=== PATIENT | female | born 1970 | race Caucasian/White ===

== ENCOUNTER → 2016-07-19 | Outpatient (CLI) | payer OTHER ==
--- NOTE | 2016-07-19 17:17 | XR ---
EXAMINATION TYPE: XR shoulder complete RT DATE OF EXAM: 07/19/2016 5:02 PM COMPARISON: NONE HISTORY: Pain after injury TECHNIQUE: 4 views FINDINGS: Negative for fracture or malalignment. No incidental findings. IMPRESSION: No acute process.
--- NOTE | 2016-07-19 17:19 | XR ---
EXAMINATION TYPE: XR scapula RT DATE OF EXAM: 07/19/2016 5:02 PM COMPARISON: NONE HISTORY: Pain after injury TECHNIQUE: 2 views FINDINGS: There is no fracture or malalignment. No incidental findings. IMPRESSION: No acute process.
== END | disposition home or self-care (01) ==
LOC: RADXRMAIN 16:37
PROVIDERS: ATTEND Emergency Medicine
DX: S40.011A Contusion of right shoulder, initial encounter (principal)

== ENCOUNTER → 2016-08-04 | Outpatient (CLI) | payer OTHER ==
--- NOTE | 2016-08-04 16:27 | MR ---
EXAMINATION TYPE: MR shoulder RT wo con DATE OF EXAM: 08/04/2016 7:03 AM COMPARISON: Right shoulder and scapular x-ray July 19, 2016 HISTORY: Rt shoulder contusion, pain, and disturbances of skin sensation all per order. Right shoulde r pain with tingling into fingers and hands since injury just over 2 weeks ago. History of prior shou lder surgery twice in 2015 per patient. TECHNIQUE: Multiplanar, multisequence imaging of the right shoulder is performed without contrast. FINDINGS: Rotator Cuff: There is increased signal in distal supraspinatus tendon. There is small focal defect a t articular surface measuring 5 x millimeters AP 5 mm transversely on parasagittal image 22 on paraco ellis image 14. No full-thickness retracted tear is seen. Infraspinatus tendon is intact. Subscapular is tendon is intact. Rotator cuff muscle bulk is preserved. Acromioclavicular Joint: There is capsular hypertrophy and joint space loss at acromioclavicular join t. Distal acromion morphology is intact. Underlying fat plane is maintained. Glenohumeral Joint: There is small glenohumeral joint effusion. No significant spurring is seen. Labrum: The labrum appears grossly intact given limitation of non-arthrogram study. Linear increased signal superior labrum for reference paracoronal image 12 favors sublabral recess. Biceps Tendon: The long head of biceps is in normal location within bicipital groove. Bone marrow signal: Some heterogeneity of bone marrow signal intensity is consistent with red marrow reconversion. Other: No additional significant abnormality is appreciated. IMPRESSION: Partial tear and tendinosis of the distal supraspinatus tendon. No full-thickness rotator cuff or labral tear clearly seen.
== END | disposition home or self-care (01) ==
LOC: RADMRIMAIN 06:28
PROVIDERS: ATTEND Emergency Medicine
DX: S46.811A Strain of other muscles, fascia and tendons at shoulder and upper arm level, right arm, initial encounter (principal); M75.81 Other shoulder lesions, right shoulder

== ENCOUNTER 2017-02-16 11:17 | Emergency (ER) | payer OTHER ==
[2017-02-16 11:25] VITALS: BP 133/68; PULSE 102; RESP 20; TEMP 100
--- NOTE | 2017-02-16 11:39 | XR ---
EXAMINATION TYPE: XR ankle complete LT DATE OF EXAM: 02/16/2017 COMPARISON: NONE HISTORY: Pain FINDINGS: Three views of the ankle demonstrate the ankle mortise to be intact and symmetric. The joint spaces are preserved. There are bony densities along the lateral malleolus with soft tissue swelling. Calcan eal spur noted. IMPRESSION: 1. Findings suspicious for avulsion fracture lateral malleolus. Adjacent soft tissue edema noted.
--- NOTE | 2017-02-16 12:00 | ED ---
General Adult HPI - General Chief complaint: Extremity Injury, Lower Stated complaint: LEFT ANKLE INJURY Time Seen by Provider: 02/16/17 11:25 Source: patient, RN notes reviewed Mode of arrival: ambulatory Limitations: no limitations - History of Present Illness Initial comments: 46-year-old female presents emergency for an chief complaint of left ankle pain. She was at volleyball in one of her fingers accurately manage her left ankle. She doesn't have pain to the left ankle. She is able to walk she has been using crutches. She does admit to history of injury to that ankle in the past but states it is not been for a long time now. Patient denies any other injuries this time. Patient denies any other trauma. Patient denies any recent fever, chills, shortness of breath, chest pain, back pain, abdominal pain, nausea vomiting, numbness or tingling, dysuria or hematuria, constipation or diarrhea, headaches or visual changes, or any other current symptoms. - Related Data Home Medications Medication Instructions Recorded Confirmed Cetirizine HCl [Zyrtec] 10 mg PO DAILY 02/16/17 02/16/17 Allergies Allergy/AdvReac Type Severity Reaction Status Date / Time amoxicillin [Amoxicillin] Allergy Rash/Hives Verified 02/16/17 11:39 chicken derived Allergy Unknown Verified 02/16/17 11:39 cinnamon Allergy Swelling Verified 02/16/17 11:39 cocoa Allergy Swelling Verified 02/16/17 11:39 doxycycline hyclate Allergy Rash/Hives Verified 02/16/17 11:39 [From Vibra-Tabs] Iodinated Contrast- Oral and Allergy Dyspnea Verified 02/16/17 11:39 IV Dye [Iodinated Contrast Media - IV Dye] Penicillins Allergy Rash/Hives Verified 02/16/17 11:39 Sulfa (Sulfonamide Allergy Rash/Hives Verified 02/16/17 11:39 Antibiotics) gluten AdvReac Unknown Unknown Verified 02/16/17 11:39 corn AdvReac Unknown Verified 02/16/17 11:39 watermelon AdvReac Unknown Verified 02/16/17 11:39 wheat AdvReac Unknown Verified 02/16/17 11:39 egg white AdvReac Unknown Uncoded 02/16/17 11:25 salmon AdvReac Unknown Uncoded 02/16/17 11:25 sesame AdvReac Unknown Uncoded 02/16/17 11:25 tea AdvReac Unknown Uncoded 02/16/17 11:25 tuna AdvReac Diarrhea Uncoded 02/16/17 11:25 turkey AdvReac Unknown Uncoded 02/16/17 11:25 yogurt AdvReac Unknown Uncoded 02/16/17 11:25 Review of Systems ROS Statement: Those systems with pertinent positive or pertinent negative responses have been documented in the HPI. ROS Other: All systems not noted in ROS Statement are negative. Past Medical History Past Medical History: GERD/Reflux, Hyperlipidemia, Thyroid Disorder Additional Past Medical History / Comment(s): Other HX: umbilical hernia, abdominal pain in the pastand dysphagia in the past which were determined to be food allergies. Pt had testing and has many food allergies. Her is bringing in a list of those allergies. Thyroid cyst. History of Any Multi-Drug Resistant Organisms: None Reported Past Surgical History: Orthopedic Surgery Additional Past Surgical History / Comment(s): 10/28/14 Srthroscopic R shoulder surgery. left ankle ligament repair with [address], throat scope. Past Anesthesia/Blood Transfusion Reactions: No Reported Reaction Additional Past Anesthesia/Blood Transfusion Reaction / Comment(s): Pt has never recieved blood. Past Psychological History: No Psychological Hx Reported Smoking Status: Never smoker Past Alcohol Use History: Rare Past Drug Use History: None Reported - Past Family History Father Family Medical History: Renal Disease Additional Family Medical History / Comment(s): Father is healthy except for renal stones. Mother Family Medical History: No Reported History Additional Family Medical History / Comment(s): Mother is healthy. Sister(s) Family Medical History: Diabetes Mellitus General Exam - General Exam Comments Initial Comments: General: The patient is awake and alert, in no distress, and does not appear acutely ill. Neck: The neck is supple, there is no tenderness. Cardiovascular: There is a regular rate and rhythm. No murmur, rub or gallop is appreciated. Respiratory: Lungs are clear to auscultation, respirations are non-labored, breath sounds are equal. No wheezes, stridor, rales, or rhonchi. Musculoskeletal: Sensation intact with 2+ pulses throughout the left flexion. Frontal motion of left knee and left ankle. Patient does have point tenderness to the lateral malleolus with some associated swelling. No proximal tib-fib tenderness. Patient is no tenderness with patient throughout the forefoot. Full range of motion 5 out of 5 muscle strength testing throughout. Neurological: CN II-XII intact, There are no obvious motor or sensory deficits. Coordination appears grossly intact. Speech is normal. Skin: Skin is warm and dry and no rashes or lesions are noted. Psychiatric: Normal mood and affect. Limitations: no limitations Course Vital Signs 02/16/17 11:21 Temperature 100.0 F H Pulse Rate 102 H Respiratory 20 Rate Blood Pressure 133/68 O2 Sat by Pulse 96 Oximetry Procedures - Orthopedic Splinting/Casting Injury #1 Side: left Lower Extremity Injury Location: ankle Lower Extremity Immobilizer: stirrup splint (short leg) Medical Decision Making - Medical Decision Making 46 shows male presents with what appears to positive pressure left ankle. She was placed in a splint at this time. We did discuss all dorsal. We did discuss return parameters all patient's questions. She stated that she understood and she is given plan. All questions have been answered. She will be discharged. - Radiology Data Radiology results: report reviewed, image reviewed Disposition Clinical Impression: Avulsion fracture of left ankle Disposition: HOME SELF-CARE Condition: Stable Instructions: Ankle Fracture (ED) Additional Instructions: Please use medication as discussed. Please follow up with family doctor if symptoms have not improved over the next two days. Please return to the emergency room if your symptoms increase or worsen or for any other concerns. Referrals: Jessica Almaraz MD [Primary Care Provider] - 1-2 days Hung Ball MD [Medical Doctor] - 1-2 days Time of Disposition: 12:00
== END 2017-02-16 12:23 | disposition home or self-care (01) ==
LOC: EC 11:17
DX: S82.892A Other fracture of left lower leg, initial encounter for closed fracture (principal); Z79.899 Other long term (current) drug therapy; Z88.0 Allergy status to penicillin; Z91.018 Allergy to other foods; Z88.1 Allergy status to other antibiotic agents; Z91.041 Radiographic dye allergy status; Z88.2 Allergy status to sulfonamides; Z91.012 Allergy to eggs; Y92.219 Unspecified school as the place of occurrence of the external cause; Y93.68 Activity, volleyball (beach) (court)
CPT/HCPCS: 29515; 99283

== ENCOUNTER → 2022-06-01 | Outpatient (CLI) | payer BC ==
--- NOTE | 2022-06-01 09:32 | US ---
EXAMINATION TYPE: US abdomen complete DATE OF EXAM: 06/01/2022 COMPARISON: NONE CLINICAL HISTORY: 51-year-old female R14.0 ABDOMINAL DISTENSION. TECHNIQUE: Multiple sonographic images of the abdomen are obtained. FINDINGS: EXAM MEASUREMENTS: Liver Length: 14.5 cm Gallbladder Wall: 0.17 cm CBD: 0.32 cm Spleen: 8.2 cm Right Kidney: 10.6 x 4.2 x 4.8 cm Left Kidney: 11.2 x 5.4 x 4.3 cm Pancreas: Tail obscured by overlying bowel gas Liver: Increased attenuation Gallbladder: wnl Evidence for sonographic Gamez's sign: No CBD: wnl Spleen: wnl Right Kidney: wnl Left Kidney: wnl Upper IVC: wnl Abd Aorta: wnl IMPRESSION: Slight attenuating liver; this may reflect mild fatty infiltration of the liver. Otherwise, no specif ic sonographic abnormality seen of the abdomen.
--- NOTE | 2022-06-01 09:47 | US ---
EXAMINATION TYPE: US transvaginal DATE OF EXAM: 06/01/2022 COMPARISON: NONE CLINICAL HISTORY: 51-year-old female Abnormal uterine and vaginal bleeding TECHNIQUE: Transvaginal (TV). Date of LMP: 05/26/2022 FINDINGS: EXAM MEASUREMENTS: Uterus: 7.9 x 4.1 x 4.8 cm Endometrial Stripe: 0.54 cm Right Ovary: 1.7 x 1.3 x 1.8 cm Left Ovary: 2.0 x 1.3 x 1.5 cm 1. Uterus: Anteverted. Incidental 6 mm cervical nabothian cysts. Slightly heterogeneous myometrium with hypoechoic mass along the posterior uterine body measuring 2.3 x 1.5 x 2.0cm. This is primarily intramural but may have a submucosal component. 2. Endometrium: wnl 3. Right Ovary: wnl 4. Left Ovary: wnl 5. Bilateral Adnexa: wnl 6. Posterior cul-de-sac: wnl IMPRESSION: 1. Mildly heterogeneous myometrium may reflect diffuse small fibroid change or adenomyosis. 2. There appears to be a focal 2.3 cm posterior uterine body fibroid, primarily intramural, but may h ave a submucosal component.
== END | disposition home or self-care (01) ==
LOC: RADUSWWP 06:58
PROVIDERS: ATTEND Family Medicine
DX: N93.9 Abnormal uterine and vaginal bleeding, unspecified (principal); R14.0 Abdominal distension (gaseous)
CPT/HCPCS: 76700; 76830

== ENCOUNTER → 2022-06-13 | Outpatient (CLI) | payer BC ==
--- NOTE | 2022-06-13 09:35 | MM ---
Reason for Exam: Clinical finding. Last mammogram was performed 11 year(s) and 10 month(s) ago. Indicated Problems: Lump or thickening of the left side. Patient History: Menarche at age 13. First Full-Term at age 29. Premenopausal. Patient has history of breast feeding. Last menstrual period: 05/21/2022 Risk Values: Rochelle 5 year model risk: 1.1%. NCI Lifetime model risk: 9.7%. Prior Study Comparison: 07/20/2010 Bilateral MG screening mammo w CAD - 2, [facility]. Tissue Density: The breast tissue is heterogeneously dense. This may lower the sensitivity of mammography. Findings: Analyzed By CAD. 1.8 cm circumscribed, partially obscured subareolar nodularity on the left is new. Patient reports palpable area near the left axilla. Unchanged low axilla regional lymph node on the left. An additional elongated, mildly prominent lymph node at the left axillary tail remains unchanged from 2011. Otherwise, no significant mass, suspicious microcalcification, or other discrete abnormality is seen. Further ultrasound evaluation recommended. Right ultrasound has also been ordered by the clinician. Overall Assessment: Incomplete: need additional imaging evaluation, BI-RAD 0 Management: Diagnostic Breast Ultrasound of both breasts. Right as ordered and left for palpable area, subareolar area and background dense tissues. Electronically signed and approved by: Tani Coreas M.D. Radiologist
--- NOTE | 2022-06-13 09:46 | USB ---
Patient History: Menarche at age 13. First Full-Term at age 29. Premenopausal. Patient has history of breast feeding. Risk Values: Rochelle 5 year model risk: 1.1%. NCI Lifetime model risk: 9.7%. Technique: Method: Whole Breast Handheld. Prior Study Comparison: 07/20/2010 Bilateral MG screening mammo w CAD - 2, [facility]. Findings: The whole breast of both breasts, the axilla of both breasts and the retroareolar of both breasts were scanned. A complete US of all four quadrants of the bilateral breasts, axilla, retro-areolar region were reviewed. On the right, no solid or cystic lesion is seen. A prominent but nonenlarged lymph nodes in the axilla measures 1.4 x 0.8 x 0.5 cm. On the left, there is a small 5 mm cyst cluster within the septated cyst at 10:00, 6 cm from the nipple. Behind the nipple is a 2.2 cm oval cyst corresponding to the mammographic nodularity. Within the left axilla, there is a prominent but nonenlarged lymph node measuring 1.9 x 0.9 x 0.5 cm. Cortex is borderline thickened at 3.5 mm, likely reactive/post inflammatory. No other solid or cystic lesion. Overall Assessment: Probably benign, BI-RAD 3 Management: Diagnostic Breast Ultrasound of the left breast in 6 months. As a precautionary measure for the borderline thickened, prominent but nonenlarged left axillary lymph node, likely reactive/post inflammatory. Likely corresponds to a prominent lymph node on mammogram present back to 2010. Results were given to the patient verbally at the time of exam. Electronically signed and approved by: Tani Coreas M.D. Radiologist
== END | disposition home or self-care (01) ==
LOC: RADMAMWWP 08:21
PROVIDERS: ATTEND Family Medicine
DX: N63.31 Unspecified lump in axillary tail of the right breast (principal); N63.32 Unspecified lump in axillary tail of the left breast
CPT/HCPCS: 77062; 77066

== ENCOUNTER → 2023-05-08 | Outpatient (CLI) | payer BC ==
--- NOTE | 2023-05-08 13:39 | USB ---
Reason for Exam: Follow-up at short interval from prior study. Patient History: Menarche at age 13. First Full-Term at age 29. Premenopausal. Patient has history of breast feeding. Risk Values: Rochelle 5 year model risk: 1.2%. NCI Lifetime model risk: 9.6%. Technique: Method: Targeted. Prior Study Comparison: 07/20/2010 Bilateral MG screening mammo w CAD - 2, [facility]. 06/13/2022 Bilateral MG 3D diag mammo w/cad [facility], [facility]. Findings: The upper section of the breast of the left breast, the axilla of the left breast and the retroareolar of the left breast were scanned. Targeted ultrasound 10:00 position, subareolar region, and axilla as follow-up of the previous abnormalities. At the 10:00 position, 6 cm from the nipple, there is a cyst cluster measuring 7 x 5 x 4 mm. Slightly larger from 5 mm, previously. But overall similar appearance. At the retroareolar region, redemonstrated large 2.0 x 1.9 x 1.4 cm benign cyst. Prominent but nonenlarged left axillary node. Overall Assessment: Probably benign, BI-RAD 3 Management: Diagnostic Mammogram of both breasts in 1 month. Total one-year follow-up left breast and annual exam of the right breast. A clinical breast exam by your physician is recommended on an annual basis and results should be correlated with mammographic findings. This exam should not preclude additional follow-up of suspicious palpable abnormalities. Results were given to the patient verbally at the time of exam. Electronically signed and approved by: Tani Coreas M.D. Radiologist
== END | disposition home or self-care (01) ==
LOC: RADUSWWP 12:32
PROVIDERS: ATTEND Family Medicine
DX: N60.02 Solitary cyst of left breast (principal)